=== PATIENT | female | born 1945 ===

== ENCOUNTER 2017-04-03 13:31 | Outpatient (CLI) | payer OTHER ==
[~2017-04-03 13:31] MED LIST: CYTOMEL25 MCG PO; OSCAL D 5001 TAB PO; TRAM1TAB98 PO
== END 2017-04-03 13:38 | disposition home or self-care (01) ==
LOC: NUCLEAR 13:31
DX: I10 Essential (primary) hypertension (principal); I25.10 Atherosclerotic heart disease of native coronary artery without angina pectoris